=== PATIENT | male | born 1980 | race Caucasian/White ===

== ENCOUNTER 2018-04-30 14:30 | Emergency (ER) | payer SELFPAY ==
[~2018-04-30] VITALS: Ht 182.9 cm; Wt 79.4 kg
--- NOTE | 2018-04-30 14:44 | ED Back Pain ---
General Stated Complaint: LOWER LEFT BACK PAIN Source of Information: Patient Exam Limitations: No Limitations History of Present Illness Date Seen by Provider: Apr 30, 2018 Time Seen by Provider: 14:38 Initial Comments To ER with left low back pain.This began A few days ago as a electrical shock starting his upper back reading to his lower back. Pain is worsened with movement. He denies fevers chills nausea or vomiting. He had a similar episode a few years ago at an outside hospital when he states he had a very bad bladder infection and also an infection in his right testicle that caused it to swell up. He states that he had to be admitted to the hospital and he is concerned that this may be the beginning of a similar illness. Location: Lumbar Spine Timing/Duration: 2-3 Days Severity: Moderate Associated Symptoms: No numbness in legs/feet, No tingling in legs/feet, No sensory/motor loss; lower back pain; No loss of bladder control, No loss of bowel control Allergies and Home Medications Allergies Coded Allergies: No Known Drug Allergies (Unverified , 04/30/18) Patient Home Medication List Home Medication List Reviewed: Yes Constitutional: see HPI; No chills, No fever EENTM: see HPI Respiratory: no symptoms reported Cardiovascular: no symptoms reported Genitourinary: no symptoms reported, other (he denies any testicular pain or swelling) Musculoskeletal: see HPI, back pain Skin: no symptoms reported Psychiatric/Neurological: No Symptoms Reported Past Dkpujbk-Uvyeym-Gsxsvi Hx Patient Social History Recent Foreign Travel: No Contact w/Someone Who Travel: No Physical Exam Vital Signs Capillary Refill : Height, Weight, BMI Height: '" Weight: lbs. oz. kg; BMI Method: General Appearance: No Apparent Distress, WD/WN HEENT: PERRL/EOMI, TMs Normal Neck: Full Range of Motion, Normal Inspection Cardiovascular: Regular Rate, Rhythm, Normal Peripheral Pulses Respiratory: Normal Breath Sounds, No Accessory Muscle Use, No Respiratory Distress Gastrointestinal: Non Tender, Soft Back: Normal Inspection, No Vertebral Tenderness Extremity: Normal Capillary Refill, Normal Inspection Neurologic/Psychiatric: Alert, Oriented x3 Skin: Normal Color, Warm/Dry Progress/Results/Core Measures Results/Orders My Orders Orders - PRICILLA AVILA APRN Cbc With Automated Diff (04/30/18 14:37) Comprehensive Metabolic Panel (04/30/18 14:37) Basic Metabolic Panel (04/30/18 14:37) Ua Culture If Indicated (04/30/18 14:37) Drug Screen Stat (Urine) (04/30/18 14:37) Departure Impression Primary Impression: Acute low back pain Disposition: 01 HOME, SELF-CARE Condition: Stable Departure-Patient Inst. Decision time for Depature: 14:43 Referrals: NO,LOCAL PHYSICIAN (PCP/Family) Primary Care Physician Patient Instructions: Low Back Pain (DC) Add. Discharge Instructions: 1. Medication as directed 2. Return to ER for any concerns 3. Scripts Methocarbamol (Robaxin-750) 750 Mg Tablet 750 MG PO Q6H PRN for PAIN-MODERATE TO SEVERE, #14 TAB Prov: PRICILLA AVILA MINGLER OPERATOR 04/30/18 Naproxen (Naprosyn) 500 Mg Tablet 500 MG PO BID PRN for PAIN-MODERATE TO SEVERE, #30 TAB Prov: PRICILLA AVILA APRN 04/30/18 PRICILLA AVILA APRN Apr 30, 2018 14:44
[2018-04-30] MEDS ORDERED: METH-313 PO (14:45)
[2018-04-30] MEDS ORDERED: NAPR-1071 PO (14:45)
[2018-04-30 15:02] LABS: BILIRUBIN,URINE NEGATIVE (NEGATIVE); CLARITY,URINE CLEAR; COLOR,URINE YELLOW; GLUCOSE, URINE (UA) NEGATIVE (NEGATIVE); KETONES,URINE NEGATIVE (NEGATIVE); LEUKOCYTE ESTERASE ,URINE 1+ (NEGATIVE); NITRITE,URINE NEGATIVE (NEGATIVE); PH,URINE 6.5 (5-9); PROTEIN,URINE NEGATIVE (NEGATIVE); UROBILINOGEN,URINE 4 MG/DL (NORMAL)
[2018-04-30 15:07] LABS: BASOPHILS % (AUTO) 1 % (0-10); EOSINOPHILS # (AUTO) 0.3 10^3/uL (0.0-0.3); EOSINOPHILS % (AUTO) 4 % (0-10); HEMATOCRIT 45 % (40-54); HEMOGLOBIN 15.9 G/DL (13.3-17.7); LYMPHOCYTES # (AUTO) 1.3 X 10^3 (1.0-4.0); LYMPHOCYTES % (AUTO) 20 % (12-44); MEAN CORPUSCULAR HEMOGLOBIN 32 PG (25-34); MEAN CORPUSCULAR HGB CONC 36 G/DL (32-36); MEAN CORPUSCULAR VOLUME 88 FL (80-99); MEAN PLATELET VOLUME 10.4 FL (7.4-10.4); MONOCYTES # (AUTO) 0.6 X 10^3 (0.0-1.0); MONOCYTES % (AUTO) 9 % (0-12); NEUTROPHILS # (AUTO) 4.1 X 10^3 (1.8-7.8); NEUTROPHILS % (AUTO) 66 % (42-75); PLATELET COUNT 200 10^3/uL (130-400); RED BLOOD COUNT 5.05 10^6/uL (4.35-5.85); RED CELL DISTRIBUTION WIDTH 12.7 % (10.0-14.5); WHITE BLOOD COUNT 6.3 10^3/uL (4.3-11.0)
[2018-04-30 15:13] LABS: AMORPHOUS SEDIMENT,UR RARE AMOR URATES /LPF; BACTERIA,URINE NEGATIVE /HPF; SQUAMOUS EPITHELIAL CELL,UR RARE /HPF; WBC,URINE 0-2 /HPF
[2018-04-30 15:22] LABS: AMPHETAMINE SCREEN, URINE NEGATIVE (NEGATIVE); BARBITURATE SCREEN URINE NEGATIVE (NEGATIVE); BENZODIAZEPINES SCREEN URINE NEGATIVE (NEGATIVE); CANNABINOID SCREEN, URINE POSITIVE (NEGATIVE); COCAINE SCREEN URINE NEGATIVE (NEGATIVE); METHADONE STAT NEGATIVE (NEGATIVE); METHAMPHETAMINE SCREEN URINE S NEGATIVE (NEGATIVE); OPIATE SCREEN URINE NEGATIVE (NEGATIVE); OXYCODONE STAT NEGATIVE (NEGATIVE); PROPOXYPHENE STAT NEGATIVE (NEGATIVE); TRICYCLIC ANTIDEPRESSANTS SCRE NEGATIVE (NEGATIVE)
[2018-04-30 15:25] LABS: ALANINE AMINOTRANSFERASE 39 U/L (0-55); ALBUMIN 4.3 GM/DL (3.2-4.5); ALKALINE PHOSPHATASE 76 U/L (40-136); BILIRUBIN,TOTAL 0.9 MG/DL (0.1-1.0); BUN/CREATININE RATIO 17; CALCIUM 9.3 MG/DL (8.5-10.1); CARBON DIOXIDE 25 MMOL/L (21-32); CHLORIDE 106 MMOL/L (98-107); CREATININE SERUM 0.98 MG/DL (0.60-1.30); GFR ESTIMATED > 60; GLUCOSE 92 MG/DL (70-105); POTASSIUM 4.3 MMOL/L (3.6-5.0); SODIUM 138 MMOL/L (135-145); TOTAL PROTEIN 7.2 GM/DL (6.4-8.2)
[2018-04-30 15:38] VITALS: BP 132/91
== END 2018-04-30 15:38 | disposition home or self-care (01) ==
LOC: ER 14:31
DX: M54.5 Low back pain (principal)
CPT/HCPCS: 36415; 80053; 80306; 81000; 85025; 99283

== ENCOUNTER 2018-07-03 14:01 | Emergency (ER) | payer SELFPAY ==
[~2018-07-03] VITALS: Ht 185.4 cm; Wt 81.6 kg
[~2018-07-03 14:01] MED LIST: METH-313 PO; NAPR-1071 PO
[2018-07-03] MEDS ORDERED: methylPREDNISolone 125 MG (Solu-MEDROL) VIAL IM ONE (14:15)
[2018-07-03] MEDS ORDERED: PRD10T PO (14:17)
--- NOTE | 2018-07-03 14:17 | ED Integumentary General ---
General Chief Complaint: Skin/Wound Problems Stated Complaint: RASH;POISON KATHRINE Source: patient Exam Limitations: no limitations History of Present Illness Date Seen by Provider: Jul 03, 2018 Time Seen by Provider: 14:06 Initial Comments This 38-year-old gentleman presents to the emergency room with generalized pruritic rash. He states the rash started the day after he was picking pecans. He believes he was exposed to poison kathrine. Topical medications are not helping him much. He reports similar poison kathrine rashes in the past. He has received steroid injections in the past for poison kathrine. Allergies and Home Medications Allergies Coded Allergies: No Known Drug Allergies (Unverified , 04/30/18) Home Medications Methocarbamol 750 Mg Tablet, 750 MG PO Q6H PRN for PAIN-MODERATE TO SEVERE Prescribed by: PRICILLA AVILA on 04/30/18 1445 Naproxen 500 Mg Tablet, 500 MG PO BID PRN for PAIN-MODERATE TO SEVERE Prescribed by: PRICILLA AVILA on 04/30/18 1445 Prednisone 10 Mg Tab, 20 MG PO UD Take 2 tablets daily for 3 days. Then one tablet daily for 3 days. Prescribed by: JENNIFER CUEVAS on 07/03/18 1417 Patient Home Medication List Home Medication List Reviewed: Yes Review of Systems Review of Systems Constitutional: no symptoms reported EENTM: no symptoms reported Respiratory: no symptoms reported Cardiovascular: no symptoms reported Gastrointestinal: no symptoms reported Musculoskeletal: no symptoms reported Skin: see HPI Psychiatric/Neurological: No Symptoms Reported Endocrine: No Symptoms Reported Hematologic/Lymphatic: No Symptoms Reported Past Juscmha-Mzjquo-Hodmso Hx Patient Social History Alcohol Use: Occasionally Uses Recreational Drug Use: No Drug of Choice: marijuana Smoking Status: Current Everyday Smoker Type Used: Cigarettes Past Medical History Surgeries: No Respiratory: No Cardiac: No Neurological: No Genitourinary: Yes Kidney Infection Gastrointestinal: No Musculoskeletal: No Endocrine: No HEENT: No Cancer: No Psychosocial: No Integumentary: No Blood Disorders: No Physical Exam Vital Signs Vital Signs - First Documented 07/03/18 14:05 Temp 98.0 Pulse 81 Resp 18 B/P (MAP) 148/90 (109) Pulse Ox 99 O2 Delivery Room Air Capillary Refill : General Appearance: WD/WN, no apparent distress HEENT: normal ENT inspection Neck: normal inspection Cardiovascular: regular rate, rhythm, no murmur Respiratory: lungs clear, normal breath sounds, no respiratory distress Extremities: normal inspection, pedal edema Neurologic/Psychiatric: wagon driver II-XII nml as tested, no motor/sensory deficits, alert, normal mood/affect, oriented x 3 Skin: warm/dry, rash (scattered erythematous, slightly raised, and pruritic rash on the extremities and trunk consistent with a type of contact dermatitis or hypersensitivity reaction.) Progress/Results/Core Measures Results/Orders My Orders Orders - JENNIFER JEAN-BAPTISTE MD Methylprednisolone Sod Succ (Solu-Medrol (07/03/18 14:15) Vital Signs/I&O 07/03/18 07/03/18 14:05 14:26 Temp 98.0 98.0 Pulse 81 81 Resp 18 18 B/P (MAP) 148/90 (109) 148/90 (109) Pulse Ox 99 99 O2 Delivery Room Air Progress Progress Note : Progress Note Patient requested a steroid injection for initial therapy. A steroid taper was provided for further treatment. Departure Impression Primary Impression: Pruritic rash Disposition: 01 HOME, SELF-CARE Condition: Improved Departure-Patient Inst. Decision time for Depature: 14:13 Referrals: NO,LOCAL PHYSICIAN (PCP/Family) Primary Care Physician Patient Instructions: Poison [place], Poison [place], Poison [place] (DC) Add. Discharge Instructions: Start your prednisone prescription tomorrow and complete as prescribed. Wash any items worn in exposed areas with detergent and cool water. You may continue to use topical products such as hydrocortisone cream and anti- itch creams. You may use Benadryl (diphenhydramine) up to 50 mg every 4 hours as needed for itching. If ever exposed to poison kathrine in the future, immediately wash with cool water and soap. All discharge instructions reviewed with patient and/or family. Voiced understanding. Scripts Prednisone (Prednisone) 10 Mg Tab 20 MG PO UD, #9 TAB Take 2 tablets daily for 3 days. Then one tablet daily for 3 days. Prov: JENNIFER JEAN-BAPTISTE MD 07/03/18 JENNIFER JEAN-BAPTISTE MD Jul 03, 2018 14:17
[2018-07-03 14:26] VITALS: BP 148/90
== END 2018-07-03 14:26 | disposition home or self-care (01) ==
LOC: EDUNIT# 14:01 → ER 14:02
DX: L29.9 Pruritus, unspecified (principal); F12.10 Cannabis abuse, uncomplicated; F17.210 Nicotine dependence, cigarettes, uncomplicated; Z87.448 Personal history of other diseases of urinary system; Z79.52 Long term (current) use of systemic steroids
CPT/HCPCS: 99284

== ENCOUNTER 2019-05-17 17:17 | Emergency (ER) | payer SELFPAY, OTHER | END 2019-05-17 18:32 | disposition home or self-care (01) | LOC: ER 17:17 ==

== ENCOUNTER 2019-05-20 14:19 | Emergency (ER) | payer SELFPAY ==
[~2019-05-20] VITALS: Ht 182.9 cm; Wt 98.9 kg
[~2019-05-20 14:19] MED LIST changes: +CLIN300C11 PO; +PRD10T PO
--- NOTE | 2019-05-20 14:59 | ED Integumentary General ---
General Chief Complaint: Skin/Wound Problems Stated Complaint: ABSCESS SWELLING Nursing Triage Note: ABSCESS RIGHT FOREARM DUE TO IV METH USE. STATES HE WAS HERE OVER THE WEEKEND AND HAD ABSCESS LEFT AC DRAINED AND STARTED ABX. STATES THE LEFT IS MUCH BETTER. Source: patient Exam Limitations: no limitations History of Present Illness Date Seen by Provider: May 20, 2019 Time Seen by Provider: 14:54 Initial Comments To ER with c/o abscess worsening to right dorsal forearm. He was seen here 2 days ago for an abscess to the dorsal right forearm and one to the left antecubital fossa from a missed methamphetamine injection/extravasation. The left antecubital fossa area was fluctuant and there was a visualized abscess on bedside ultrasound. This was incised with an 11 blade scalpel and drained. He reports that is better today. However the abscess to the dorsal right forearm which was essentially a flat area of cellulitis 2 days ago has now become a well demarcated fluctuant abscess. He continues on clindamycin orally. Timing/Duration: just prior to arrival Severity: moderate Location: extremities Associated Symptoms: denies symptoms Allergies and Home Medications Allergies Coded Allergies: No Known Drug Allergies (Unverified , 04/30/18) Home Medications Clindamycin HCl 300 Mg Capsule, 300 MG PO TID Prescribed by: PRICILLA AVILA on 05/17/19 3229 Patient Home Medication List Home Medication List Reviewed: Yes Review of Systems Review of Systems Constitutional: see HPI EENTM: see HPI Respiratory: no symptoms reported Cardiovascular: no symptoms reported Genitourinary: no symptoms reported Musculoskeletal: no symptoms reported Skin: see HPI Psychiatric/Neurological: No Symptoms Reported Endocrine: No Symptoms Reported Past Btwueuj-Sxkmlh-Uofkup Hx Patient Social History Alcohol Use: Denies Use Recreational Drug Use: Yes (IV METH, POT) Drug of Choice: marijuana Smoking Status: Current Everyday Smoker Type Used: Cigarettes Recent Foreign Travel: No Contact w/Someone Who Travel: No Recent Infectious Disease Expo: No Past Medical History Surgeries: No Respiratory: No Cardiac: No Neurological: No Genitourinary: Yes Kidney Infection Gastrointestinal: No Musculoskeletal: No Endocrine: No HEENT: No Cancer: No Psychosocial: No Integumentary: No Blood Disorders: No Physical Exam Vital Signs Vital Signs - First Documented 05/20/19 14:20 Temp 97.3 Pulse 51 Resp 16 B/P (MAP) 140/85 (103) Pulse Ox 96 O2 Delivery Room Air Capillary Refill : Less Than 3 Seconds General Appearance: WD/WN, no apparent distress HEENT: PERRL/EOMI, normal ENT inspection Respiratory: no respiratory distress, no accessory muscle use Extremities: normal range of motion, non-tender, other (well-demarcated area of erythema to the dorsal right forearm. Visualized fluid collection seen on be dside ultrasound.) Neurologic/Psychiatric: alert, normal mood/affect, oriented x 3 Skin: normal color, warm/dry Procedures/Interventions I&D : Blade Size: 11 Progress/Results/Core Measures Results/Orders Vital Signs/I&O 05/20/19 14:20 Temp 97.3 Pulse 51 Resp 16 B/P (MAP) 140/85 (103) Pulse Ox 96 O2 Delivery Room Air Blood Pressure Mean: 103 Departure Impression Primary Impression: Abscess Disposition: 01 HOME, SELF-CARE Condition: Stable Departure-Patient Inst. Decision time for Depature: 14:59 Referrals: NO,LOCAL PHYSICIAN (PCP/Family) Primary Care Physician Patient Instructions: Skin Abscess Add. Discharge Instructions: 1. Return to ER for any concerns 2. Follow-up with your doctor next week 3. Continue with the antibiotics. All discharge instructions reviewed with patient and/or family. Voiced understanding. PRICILLA AVILA MANAGER RELOCATION May 20, 2019 14:59
[2019-05-20 15:03] VITALS: BP 140/85
== END 2019-05-20 15:03 | disposition home or self-care (01) ==
LOC: EDUNIT# 14:19 → ER 14:20
DX: L02.414 Cutaneous abscess of left upper limb (principal); F17.210 Nicotine dependence, cigarettes, uncomplicated
CPT/HCPCS: 10060